=== PATIENT | female | born 1955 | race Caucasian/White ===

== ENCOUNTER 2017-02-20 09:47 | Emergency (ER) | payer BC ==
[2017-02-20 10:03] VITALS: BP 136/76
[2017-02-20] MEDS ORDERED: cefTRIAXone 1 GM, Lidocaine 1% 2.1 ML IM SCH ×2 (10:30)
--- NOTE | 2017-02-20 10:44 | EDM.PDOC ---
ED HPI GENERAL MEDICAL PROBLEM - General Chief Complaint: ENT Problem Stated Complaint: FACIAL PAIN AND SWELLING Time Seen by Provider: 02/20/17 10:04 Source of Information: Reports: Patient History Limitations: Reports: No Limitations - History of Present Illness INITIAL COMMENTS - FREE TEXT/NARRATIVE: The patient presents with right facial swelling. She has a bad tooth and she had a dental abscess and was on clindamycin. She was getting better but it flared up again. She has no fever or chills. She has no nausea or vomiting. She has no diarrhea or vomiting. Onset: Gradual Duration: Week(s): Location: Reports: Face Quality: Reports: Sharp Severity: Moderate Improves with: Reports: None Worsens with: Reports: None Context: Reports: Other Associated Symptoms: Denies: Fever/Chills, Nausea/Vomiting, Shortness of Breath Right Upper Tooth/Teeth Pain Score (Numeric/FACES): 9 - Related Data Allergies Allergy/AdvReac Type Severity Reaction Status Date / Time clarithromycin [From Biaxin] Allergy Rash Verified 02/20/17 10:04 Sulfa (Sulfonamide Allergy Rash Verified 02/20/17 10:04 Antibiotics) acetaminophen [From Tylenol] AdvReac Stomach Verified 02/20/17 10:04 Upset Penicillins AdvReac Dizziness Verified 02/20/17 10:04 Home Meds: Home Meds Aspirin [Adult Low Dose Aspirin EC] 81 mg PO DAILY 11/12/14 [History] Fenofibrate Nanocrystallized [Tricor] 145 mg PO DAILY 11/12/14 [History] Metoprolol Tartrate [Lopressor] 50 mg PO QPM 11/12/14 [History] Metoprolol Tartrate [Lopressor] 100 mg PO QAM 11/12/14 [History] Rosuvastatin [Crestor] 20 mg PO DAILY 11/12/14 [History] buPROPion HCl [Wellbutrin SR] 150 mg PO BID 11/12/14 [History] metFORMIN [Glucophage] 1,000 mg PO BID 11/12/14 [History] Multivitamin [Multivitamins] 1 each PO DAILY 02/11/16 [History] HYDROcodone/Ibuprofen [Vicoprofen] 1 tab PO Q6H PRN #20 tablet 02/20/17 [Rx] Past Medical History Cardiovascular History: Reports: High Cholesterol, Hypertension Gastrointestinal History: Reports: Other (See Below) Other Gastrointestinal History: Gall Stones Genitourinary History: Reports: Renal Calculus Musculoskeletal History: Reports: Osteoarthritis, Other (See Below) Other Musculoskeletal History: Ankle FX Neurological History: Reports: TIA Endocrine/Metabolic History: Reports: Diabetes, Type II - Past Surgical History Female Surgical History: Reports: Section, Hysterectomy Social & Family History - Tobacco Use Smoking Status *Q: Current Every Day Smoker Years of Tobacco use: 40 Packs/Tins Daily: 0.5 Used Tobacco, but Quit: No - Caffeine Use Caffeine Use: Reports: Soda - Alcohol Use Days Per Week of Alcohol Use: 0 - Recreational Drug Use Recreational Drug Use: No ED ROS ENT - Review of Systems Review Of Systems: See Below Constitutional: Reports: No Symptoms HEENT: Reports: Dental Pain, Other (Facial swelling) Respiratory: Reports: No Symptoms Cardiovascular: Reports: No Symptoms Endocrine: Reports: No Symptoms GI/Abdominal: Reports: No Symptoms : Reports: No Symptoms Musculoskeletal: Reports: No Symptoms Skin: Reports: No Symptoms ED EXAM, ENT - Physical Exam Exam: See Below Exam Limited By: No Limitations General Appearance: Alert, No Apparent Distress Ears: Normal External Exam Nose: Normal Inspection Mouth/Throat: Other (Pain upon palpation and edema to the right upper gum line. There is a cannine tooth and premolar present. The molars are gone.) Head: Atraumatic, Normocephalic Neck: Normal Inspection Respiratory/Chest: No Respiratory Distress Course - Vital Signs Last Recorded V/S: Last Vital Signs Temp 97.7 F 02/20/17 09:59 Pulse 88 02/20/17 09:59 Resp 18 02/20/17 09:59 BP 136/76 02/20/17 09:59 Pulse Ox 99 02/20/17 09:59 - Orders/Labs/Meds Orders: Active Orders 24 hr Category Date Time Status cefTRIAXone [Rocephin] 1 gm Med 02/20/17 10:30 Active Lidocaine 1% [Xylocaine 1%] 2.1 ml IM Q24H Medication Orders Ceftriaxone Sodium 1 gm/ (Lidocaine HCl 2.1 ml) 0 gm IM Q24H ANITA Last Admin: 02/20/17 10:33 Dose: 1 inj Meds: Medications Generic Name Dose Route Start Last Admin Trade Name Freq PRN Reason Stop Dose Admin Ceftriaxone Sodium 1 gm/ 0 gm 02/20/17 10:30 02/20/17 10:33 Lidocaine HCl 2.1 ml IM 1 inj Q24H ANITA Administration - Re-Assessments/Exams Free Text/Narrative Re-Assessment/Exam: 02/20/17 10:44 I have ordered a dose or rocephin 1 gram here. 02/20/17 10:50 She still has the clindamycin. I will have her continue that and I will give her some more vicuprofen. Departure - Departure Time of Disposition: 10:55 Disposition: Home, Self-Care 01 Condition: good Clinical Impression: Dental abscess - Discharge Information Prescriptions: HYDROcodone/Ibuprofen [Vicoprofen] 1 tab PO Q6H PRN #20 tablet PRN Reason: Pain Referrals: Hazel Villanueva PA-C [Primary Care Provider] - Forms: ED Department Discharge Additional Instructions: Take the clindamycin as prescribed and the vicoprofin as needed for pain. Put a warm compress on your face 2 to 3 times per day for a few days. Please return if you are worse with more pain or swelling or fever. - My Orders Last 24 Hours: My Active Orders 02/20/17 10:30 cefTRIAXone [Rocephin] 1 gm Lidocaine 1% [Xylocaine 1%] 2.1 ml IM Q24H - Assessment/Plan Last 24 Hours: My Active Orders 02/20/17 10:30 cefTRIAXone [Rocephin] 1 gm Lidocaine 1% [Xylocaine 1%] 2.1 ml IM Q24H
== END 2017-02-20 11:00 | disposition home or self-care (01) ==
LOC: JD.ED 09:47
DX: K04.7 Periapical abscess without sinus (principal); E78.00 Pure hypercholesterolemia, unspecified; I10 Essential (primary) hypertension; M19.90 Unspecified osteoarthritis, unspecified site; E11.9 Type 2 diabetes mellitus without complications; F17.210 Nicotine dependence, cigarettes, uncomplicated; Z88.0 Allergy status to penicillin; Z88.2 Allergy status to sulfonamides; Z88.1 Allergy status to other antibiotic agents; Z88.8 Allergy status to other drugs, medicaments and biological substances; Z79.82 Long term (current) use of aspirin; Z79.899 Other long term (current) drug therapy; Z86.73 Personal history of transient ischemic attack (TIA), and cerebral infarction without residual deficits; Z90.710 Acquired absence of both cervix and uterus
CPT/HCPCS: 96372; 99283; J0696

== ENCOUNTER 2022-07-30 06:58 | Day surgery (SDC) | payer MEDICARE, OTHER ==
[~2022-07-30 06:58] MED LIST: Lactated Ringers 1,000 ML IV SCH; Lidocaine 1%/Sod Bicarbonate in NS 8.4% 1 ML Syringe IDERM PRN; Sodium Chloride 0.9% 10 ML Syringe FLUSH PRN; Sodium Chloride 0.9% 10 ML Syringe FLUSH SCH
[2022-07-30] MEDS ORDERED: Propofol 200 MG/20 ML SDV ONE ×2 (07:05→08:36)
[2022-07-30] MEDS ORDERED: Lidocaine 1% 4 ML ONE (07:07)
[2022-07-30 10:02] VITALS: BP 130/60; PULSE 60
== END 2022-07-30 09:55 | disposition home or self-care (01) ==
LOC: JD.SDS 06:58
PROVIDERS: ATTEND Surgery
DX: Z12.11 Encounter for screening for malignant neoplasm of colon (principal)
CPT/HCPCS: 93005; J2704; J7120

== ENCOUNTER 2023-02-11 08:45 | Day surgery (SDC) | payer MEDICARE, OTHER ==
[2023-02-11] MEDS ORDERED: Lidocaine 1% 2 ML ONE (09:46)
[2023-02-11] MEDS ORDERED: fentaNYL 100 MCG/2 ML SDV ONE (09:46)
[2023-02-11] MEDS ORDERED: Propofol 200 MG/20 ML SDV ONE ×3 (09:46→11:01)
[2023-02-11] MEDS ORDERED: Midazolam 1 MG/ML 2 ML SDV ONE (09:47)
[2023-02-11] MEDS ORDERED: Lidocaine 1% PF 2 ML SDV ONE (10:30)
[2023-02-11 12:19] VITALS: BP 140/70; PULSE 67
== END 2023-02-11 12:00 | disposition home or self-care (01) ==
LOC: JD.SDS 08:45
PROVIDERS: ATTEND Surgery
DX: Z12.11 Encounter for screening for malignant neoplasm of colon (principal); D12.3 Benign neoplasm of transverse colon; K57.30 Diverticulosis of large intestine without perforation or abscess without bleeding; K64.8 Other hemorrhoids; F41.9 Anxiety disorder, unspecified; M19.90 Unspecified osteoarthritis, unspecified site; I25.10 Atherosclerotic heart disease of native coronary artery without angina pectoris; I10 Essential (primary) hypertension; E11.9 Type 2 diabetes mellitus without complications; M81.0 Age-related osteoporosis without current pathological fracture; E78.2 Mixed hyperlipidemia; F32.A Depression, unspecified; F17.210 Nicotine dependence, cigarettes, uncomplicated; Z86.010 Personal history of colon polyps; Z80.0 Family history of malignant neoplasm of digestive organs; Z88.0 Allergy status to penicillin; Z88.2 Allergy status to sulfonamides; Z88.1 Allergy status to other antibiotic agents; Z79.82 Long term (current) use of aspirin; Z79.84 Long term (current) use of oral hypoglycemic drugs; Z79.899 Other long term (current) drug therapy
CPT/HCPCS: 45380; 82947; J2250; J2704; J3010; J7120; 00811; J3490

== ENCOUNTER 2024-06-08 02:50 | Emergency (ER) | payer MEDICARE, OTHER ==
[2024-06-08 03:32] LABS: BASOPHILS PERCENT AUTO 0.2 % (0.0-1.0); EOSINOPHILS ABSOLUTE AUTO 0.1 K/mm3 (0.0-0.4); EOSINOPHILS PERCENT AUTO 0.8 % (0.0-6.0); HEMATOCRIT 41.9 % (37.0-47.0); HEMOGLOBIN 14.2 gm/dl (12.0-16.0); IMMATURE GRAN ABSOLUTE AUTO 0.05 K/mm3 (0.00-0.05); IMMATURE GRAN PERCENT AUTO 0.3 % (0.0-0.4); LYMPHOCYTES ABSOLUTE AUTO 2.2 K/mm3 (1.0-4.8); LYMPHOCYTES PERCENT AUTO 15.3 % (24.0-44.0); MEAN CORPUSCULAR HEMOGLOBIN 30.8 pg (28.0-32.0); MEAN CORPUSCULAR HGB CONC 33.9 g/dl (32.0-36.0); MEAN CORPUSCULAR VOLUME 90.9 fl (83.0-99.0); MEAN PLATELET VOLUME 10.9 fl (9.4-12.3); MONOCYTES ABSOLUTE AUTO 1.2 K/mm3 (0.0-0.8); MONOCYTES PERCENT AUTO 7.9 % (0.0-8.0); NEUTROPHILS PERCENT AUTO 75.5 % (41.0-71.0); PLATELET COUNT,PLT 220 K/mm3 (150-400); RED BLOOD CELL COUNT 4.61 M/mm3 (4.10-5.30); WHITE BLOOD CELL COUNT,WBC 14.53 K/mm3 (3.9-11.3)
[2024-06-08 03:48] LABS: APPEARANCE,URINE CLEAR (Clear); BILIRUBIN,URINE NEGATIVE (Negative); COLOR,URINE YELLOW (Yellow); GLUCOSE,URINE NEGATIVE (Negative); KETONES,URINE NEGATIVE (Negative); LEUKOCYTE ESTERASE,URINE NEGATIVE (Negative); NITRITE,URINE NEGATIVE (Negative); OCCULT BLOOD,URINE NEGATIVE (Negative); PROTEIN,URINE NEGATIVE (Negative); UROBILINOGEN,URINE 0.2 (0.2-1.0)
[2024-06-08 03:54] LABS: A/G RATIO 1.3 (1-2); ANION GAP 13.6 (5-15); BUN/CREATININE RATIO 20.9 (14-18); C-REACTIVE PROTEIN 0.42 mg/dL (<0.30); CALCIUM 10.8 mg/dL (8.5-10.1); CREATININE 1.1 mg/dL (0.55-1.02); EST CRCL DRUG DOSING (CG) 42.21 mL/min; MAGNESIUM 1.2 mg/dL (1.8-2.4); POTASSIUM,K 3.6 mEq/L (3.5-5.1); PROTEIN TOTAL,TP 7.2 g/dl (6.4-8.2)
[2024-06-08] MEDS: Sodium Chloride 0.9% 10 ML Syringe FLUSH PRN (04:53)
[2024-06-08] MEDS: Magnesium Sulfate/Water 2 GM in Premix Bag 1 BAG IV SCH (04:53)
[2024-06-08] MEDS: Dicyclomine 10 MG Cap PO ONE (05:59)
[2024-06-08 09:02] VITALS: BP 126/48; PULSE 72
== END 2024-06-08 09:00 | disposition home or self-care (01) ==
LOC: JD.ED 02:50
DX: A08.4 Viral intestinal infection, unspecified (principal); E83.42 Hypomagnesemia; I10 Essential (primary) hypertension; I25.10 Atherosclerotic heart disease of native coronary artery without angina pectoris; E78.00 Pure hypercholesterolemia, unspecified; E11.9 Type 2 diabetes mellitus without complications; Z86.73 Personal history of transient ischemic attack (TIA), and cerebral infarction without residual deficits; Z79.84 Long term (current) use of oral hypoglycemic drugs; Z79.899 Other long term (current) drug therapy; Z88.2 Allergy status to sulfonamides; Z88.0 Allergy status to penicillin; Z88.1 Allergy status to other antibiotic agents
CPT/HCPCS: 36415; 80053; 81003; 83735; 85025; 86140; 96365; 96366; 99284; 99284-25; A9270-GY; J3475; J3490